=== PATIENT | male | born 1980 | race Caucasian/White ===

== ENCOUNTER 2016-11-06 05:37 | Day surgery (SDC) | payer OTHER ==
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
[2016-11-06] VITALS (21 sets, daily range): BP systolic 106–137; BP diastolic 66–83; PULSE 61–102; RESP 10–18; O2SAT 88–99
[~2016-11-06] VITALS: Ht 175.3 cm; Wt 93.8 kg
[~2016-11-06 05:37] MED LIST: DOCU250C2 PO; ESOM20CA28 PO; IBUP800T28 PO; Lactated Ringer's 1,000 ML IV ONE; METH750T3 PO; OXYC-466 PO
[2016-11-06] MEDS ORDERED: Propofol 10,000 mCg/mL 20 mL Inj ONE (05:38)
[2016-11-06] MEDS ORDERED: Neostigmine 1 mg/mL 10 mL Inj ONE (05:38)
[2016-11-06] MEDS ORDERED: Rocuronium 10 mg/mL 5 mL Inj ONE (05:38)
[2016-11-06] MEDS ORDERED: Glycopyrrolate 0.2 MG/ML 1mL Inj ONE (05:38)
[2016-11-06] MEDS ORDERED: Dexamethasone 4 mg/mL Inj ONE (05:38)
[2016-11-06] MEDS ORDERED: HYDROmorphone 2 mg/mL Inj ONE (05:38)
[2016-11-06] MEDS ORDERED: EPHEDrine/NS 5 mg/mL 5 mL Syringe ONE (05:38)
[2016-11-06] MEDS ORDERED: Succinylcholine Chloride 20 mg/mL 5 mL Inj ONE (05:38)
[2016-11-06] MEDS ORDERED: Ondansetron 2 mg/mL 2 mL Inj ONE (05:38)
[2016-11-06] MEDS ORDERED: fentaNYL-PF 50 mCg/mL 2 mL Inj ONE (05:38)
[2016-11-06] MEDS ORDERED: Bacitracin 50,000 unit Inj IRRIGATION SCH (06:00)
[2016-11-06] MEDS ORDERED: Thrombin Powder 5,000 Unit TOPICAL SCH (06:00)
[2016-11-06] MEDS ORDERED: CeFAZolin Inj 2 GM in IV Premix 1 EACH IV ONE (06:00)
[2016-11-06] MEDS ORDERED: Bupivacaine Liposome 1.3% 20 mL Inj INFILTRATE ONE (06:00)
[2016-11-06] MEDS ORDERED: Lactated Ringer's 500 ML IV PRN (08:12)
[2016-11-06] MEDS ORDERED: Lactated Ringer's 1,000 ML IV SCH (08:12)
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
[2016-11-06] MEDS ORDERED: Phenylephrine 10,000 mCg/mL Inj IVPUSH PRN (08:15)
[2016-11-06] MEDS ORDERED: Atropine 0.4 mg/mL Inj IVPUSH PRN (08:15)
[2016-11-06] MEDS ORDERED: Ondansetron 2 mg/mL 2 mL Inj IVPUSH PRN ×3 (08:15→11:25)
[2016-11-06] MEDS ORDERED: EPHEDrine Sulfate 50 mg/mL Inj IVPUSH PRN (08:15)
[2016-11-06] MEDS ORDERED: Labetalol 5 mg/mL 4 mL Inj IV PRN (08:15)
[2016-11-06] MEDS ORDERED: MetoCLOpramide 5 mg/mL 2 mL Inj IVPUSH PRN ×2 (08:15→11:25)
[2016-11-06] MEDS ORDERED: Bupivacaine-MPF 0.5% 30 mL Inj INFILTRATE ONE (08:25)
[2016-11-06] MEDS ORDERED: Bacitracin 50,000 unit Inj IRRIGATION ONE (08:25)
[2016-11-06] MEDS ORDERED: Gelatin Sponge 12-7 MM TOPICAL ONE (08:25)
--- NOTE | 2016-11-06 08:36 | DRSVH ---
PROCEDURE: X-RAY LUMBAR SPINE, 1 VIEW INDICATIONS: LUMBAR SPINE SURGERY TECHNIQUE: 1 views of the lumbar spine were acquired. COMPARISON: [facility] [place], [place], SPINE LUMB MIN 4VW, 07/10/2016, 15:03. FINDINGS: Bones: Radiopaque surgical probe projected over the posterior elements at the L4 level. Soft tissues: Overlying bowel gas pattern is normal. No suspicious soft tissue calcifications. IMPRESSION: Localizer projected over the posterior elements at the L4 level. Dr. Timmons given results at 0 35 hours 11/06/2016. Dictated by: Marcelo Grubbs [facility] Interpreted: Anthony Porter MD on 11/06/2016 at 8:34 Transcribed by: MICAH on 11/06/2016 at 8:35 Approved by: Anthony Porter M.D. on 11/06/2016 at 10:29
[2016-11-06] MEDS ORDERED: Lactated Ringer's 1,000 ML IV ONE (11:10)
[2016-11-06] MEDS ORDERED: Sodium Biphos-Phos 133 mL Enema RECTAL PRN (11:25)
[2016-11-06] MEDS ORDERED: Senna-Docusate 8.6-50 mg Tablet PO PRN (11:25)
[2016-11-06] MEDS ORDERED: Magnesium Hydroxide 10 mL Oral Concentration PO PRN (11:25)
--- NOTE | 2016-11-06 11:26 | PCM.ANEP1 ---
Post Anesthesia PACU Phase 1 Assessment Vital Signs Vital Signs Date Time Temp Pulse Resp B/P Pulse Ox O2 Delivery O2 Flow Rate FiO2 11/06/16 11:20 93 13 137/82 98 Nasal Cannula 3 11/06/16 11:15 81 11 137/77 99 Simple Mask 8 11/06/16 11:10 78 12 135/81 98 Simple Mask 8 11/06/16 11:05 82 10 134/67 96 Simple Mask 8 11/06/16 11:04 36.7 84 11 130/76 95 Nasal Cannula 3 11/06/16 06:04 36.0 61 16 125/83 99 Room Air Anesthetic Administered: GA Level of Alertness: Sleepy, easy to arouse LANE's with Equal Strength: Yes Pain: No Nausea or Vomiting: No CV Function & Hydration Stable: Yes Airway Device: Endotrachial Tube Oxygen Delivery: Nasal Cannula Lungs: Clear to Auscultation, Normal Air Movement PACU Phase 2 Assessment Complications: No Follow up Care: N/A Patient Instructions Provided: N/A Nile Magdaleno MD November 06, 2016 11:26
[2016-11-06] MEDS: fentaNYL-PF 50 mCg/mL 2 mL Inj IVPUSH PRN ×3 (11:28→11:46)
[2016-11-06] MEDS: HYDROmorphone 1 mg/mL Inj IVPUSH PRN ×4 (11:28→15:21)
--- NOTE | 2016-11-06 11:40 | PCM.DISURG ---
Surgical Discharge Instruction Date of Service November 06, 2016 Dates of Hospitalization Date of Hospital Admission Outpatient with bed status 11/06/2016 Providers Admitting Physician: Primary Care Physician: Fanny Corral MD Attending Physician: Vinnie Timmons MD Discharge Diagnosis Discharge Diagnosis Status post L4-5 partial laminectomy with left L4-5 microdiscectomy Post Operative diagnosis Status post L4-5 partial laminectomy with left L4-5 microdis Additional Instructions Discharge Instructions Lumbar Decompression Instructions What is my recovery like? Patient usually go home the same day of surgery but occasionally stay overnight and discharged the next morning. A lumbar brace is worn for comfort only. What are my restrictions? You should not lift anything heavier than five pounds. You should not perform any excessive bending from the waist or twisting movements. Can I Shower? You may shower when you go home. You must remove the outside dressing on the 7th day after surgery, or change as needed if soiled or saturated (replacing new sterile gauze & water proof dressing) otherwise leave alone. The remaining small pieces of tape (steri-strips) directly on top of the incision may get wet. The steri-strips will fall off on their own. Can I drive? No, you should not drive until specifically given permission from your Doctor in a follow up appointment. Most Patient's can drive in 2-3 weeks if they are not taking narcotic pain medications or muscle relaxers. You may ride in a car, but should avoid trips longer than two hours in duration. When can I return work / sports? Your Doctor will discuss your return to work with you on your first postoperative follow-up appointment. Most patients may return to work within 2 weeks for sedentary jobs. More physically demanding jobs may require 3-6 months of healing before such work can be considered. When should I call the doctor? You should call your Doctor or go to the Emergency Department if you develop chest pain, shortness of breath, a temperature greater than 101.5 F, severe uncontrolled pain or weakness, loss of bowel or bladder function, choking, lots or drainage, pus discharge or constipation. Instructions Regarding Comfort & Pain Medication Use: During the recovery period , even with the use of pain medication, you may experience pain at the site of surgery. You may also have the same type of pain you had before surgery. Please use your pain scale as a guide for taking your pain medication. When your pain is greater than 4 out of 10, or when your pain reaches your personal tolerable level of pain, take your pain medication as prescribed. Use your pain medication on an 'as needed' basis. This means if your pain level is within your tolerable level of pain you DO NOT need to take the medication. As you get better, you will notice you can increase the time interval between doses and decrease the number of tablets you are taking, gradually taking less and less pain medication. Taking pain medication when it is not necessary (for example when your pain is tolerable or acceptable) can result in dangerous side effects and over- sedation. Signs and symptoms of over-sedation include: drowsiness, excessive sleeping, slow or difficult breathing, slurred speech, impaired thinking, confusion, impaired motor coordination. If you have any of these symptoms stop taking the medication and immediately contact your doctor. IF SYMPTOMS ARE LIFE THREATENING CALL 911. To decrease pain and swelling, frequently apply an ice pack for 20 min intervals with at least one hour off. When to take Acetaminophen for pain? If you don't have liver problems, allergies and/or Tylenol is not in your current pain medication. Take Extra Strength Tylenol 500mg 2 tabs by mouth every 6 hours as needed for pain. DO NOT EXCEED 8 TABS PER DAY. Follow Up Plan Follow Up Plan Follow-up with physician surgeon assistant and outpatient neurosurgery clinic in 1 week for wound check Follow-up Provider (F9): Anthony Solomon PA-C Additional Information Attending Statement All documentation reviewed & orders arthritis by Dr. Vinnie Timmons M.D. Anthony Solomon PA-C November 06, 2016 11:40
--- NOTE | 2016-11-06 11:59 | OP ---
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 POSTOPERATIVE DIAGNOSIS(ES): PROCEDURE: 1. Open bilateral L4-L5 partial hemilaminectomy with lateral recess decompression bilaterally. 2. Left L4-L5 microdiskectomy. SURGEON: Vinnie Timmons MD COMMERCIAL [employer]AR SALES CONSULTANT: Anthony Solomon PA-C ANESTHESIA: General with Dr. Nile Magdaleno ESTIMATED BLOOD LOSS: 25 cc. DRAINS: None. COMPLICATIONS: None. INDICATIONS: This patient presented with bilateral L5 radiculopathy, more pronounced on the left side, and had a large central disk herniation causing bilateral lateral recess stenosis. DOCUMENTATION FOR COMMERCIAL SOLAR SALES CONSULTANT: This surgery requires a ophthalmic surgical assistant for retraction of the nerve root during procedures that require the calender machine operator to use two hands. The ophthalmic surgical assistant is required for the safety of this operation. DESCRIPTION OF PROCEDURE: This patient was taken to the operating room on November 06, 2016, placed under general anesthesia, placed prone on a Yony frame, prepped and draped sterile. The skin was infiltrated with plain Marcaine and a spinal needle was placed in the middle of his prior midline incision from his prior back surgery. The x-ray confirmed that the needle was directly over the disc space and adjacent to the L4 spinous process. The skin was then incised along the old scar and the incision was carried down sharply through the skin and subcutaneous tissue to the dorsal lumbar fascia. Hemostasis was achieved with the monopolar and Weitlaner retractors were placed. The fascia along the spinous process of L4 and L5 was incised with the monopolar. Then, the Piper elevators were used to mobilize the paraspinous musculature off of the spinous process of L4 and L5, the lamina of L4 and L5, and mobilized this tissue laterally on both sides of the L4 and L5 spinous process. A sharp towel clip was then used as a marker and it was attached to the spinous process of L4, and its position was confirmed with an intraoperative lateral L-spine x-ray. The microscope was then brought into position on the left side and the patient had a partial hemilaminectomy of L4 and L5 on the left side, thinning the lamina of L4 and L5 with a high-speed bur and undermining with the Kerrison punch. The ligamentum flavum was removed and this decompression was extended laterally undermining the ligament and the most medial aspect of the left L4-L5 facet. This decompressed the lateral recess of the L5 root. The root was then mobilized medially and the patient had a disk herniation that was adherent to the L5 root. It was possible to mobilize the nerve root off of the herniated portion of the disk and remove this herniated portion to decompress beneath the thecal sac and the left L5 root. This was an aggressive diskectomy on the left side. The disc space was entered and the degenerative material was removed with the reverse angle curette and the pituitary rongeur, and the diskectomy was extended across the midline. A large free fragment was removed during this procedure that decompressed beneath the thecal sac and beneath the left S1 root. The disc space was then irrigated with antibiotic solution. Gelfoam was left in the partial hemilaminectomy wound on the left side. Attention was then turned to the right side and the microscope was repositioned to the right side at the L4-L5 level. The patient had a right L4-L5 partial hemilaminectomy. The lamina of L4 and L5 were thinned with a high-speed bur, undermined with the Kerrison punch and the ligamentum flavum was removed. The medial aspect of the right L4-L5 facet was undermined with the Kerrison punch to extend the decompression laterally to decompress the right L5 root. The patient had a lateral recess decompression on the right side of the L5 root. The L5 root on the right side was not compressed by the disc herniation. The diskectomy on the left side had completely relieved any protrusion beneath the thecal sac and the left S1 root. The annulus appeared flat. For this reason, I elected not to disrupt the annulus on the left side. The patient had a diskectomy on the left side at L4-L5 that reached across the midline, but did not have a diskectomy on the right side at L4-L5. This patient did have a lateral recess decompression of the L5 roots bilaterally. At this point, the right L4-L5 partial hemilaminectomy defect was irrigated. Hemostasis was achieved with Gelfoam. Gelfoam was left in the partial hemilaminectomy defect on the right side. The deep retractors were removed. Hemostasis was achieved with the bipolar electrocautery. The dorsal lumbar fascia was approximated with interrupted sutures of 0 Vicryl. The subcutaneous tissues closed with 2-0 Vicryl and the skin was closed with 4-0 Vicryl using a subcuticular stitch. Steri-Strips were applied to the skin, which was dressed with Telfa, gauze, and tape.
[2016-11-06] MEDS: 0.9% Sodium Chloride 1,000 ML IV SCH ×2 (13:40→19:25)
[2016-11-06] MEDS: Acetaminophen IV 1,000 MG in IV Premix 1 EACH IV SCH ×3 (14:21→23:25)
[2016-11-06] MEDS: Dexamethasone 4 mg/mL Inj IVPUSH SCH ×2 (14:21→20:07)
[2016-11-06] MEDS: CeFAZolin Inj 2 GM in IV Premix 1 EACH IV SCH (16:41)
[2016-11-06] MEDS: hydrOXYzine Pamoate 25 mg Capsule PO PRN (17:34)
--- NOTE | 2016-11-06 19:23 | NUR ---
Post op Pt arrived on unit in bed at 1235. 3L NC, IV infusing LR in surgical tubing, dressing has small amount of blood on it. VSS, LANE, but feet are still numb and weak when flexing or extending. Pt is oriented to room, call light and positioned for comfort. Agreeable to all care. Pain 7/10 in his back. Bed in low, call light in reach, continue Q1 hour vitals and neuro checks.
--- NOTE | 2016-11-06 19:25 | NUR ---
Dizzy/pain Pt attempted to get OOB at 1430. After sitting at side of bed pt attempted to stand and got dizzy and sweaty. Laid pt back down and he started having increasing pain and cramping in his right lateral calf. Medications given and MD paged. Advised pt to stay and continue medication regimen. Pt's pain decreased with lying down, declined to put SCD's back on. Pt able to get up and walk to BR at 1530, voided 800. Pain well controlled rest of shift. Plan with MD is to d/c tomorrow as long as pt remains stable. Bed in low, call light in reach, continue to monitor.
[2016-11-06] MEDS: Senna-Docusate 8.6-50 mg Tablet PO SCH (20:07)
[2016-11-07] MEDS: CeFAZolin Inj 2 GM in IV Premix 1 EACH IV SCH (00:25)
[2016-11-07 00:30] VITALS: BP 117/76; PULSE 87; RESP 18; O2SAT 96
[2016-11-07] MEDS: hydrOXYzine Pamoate 25 mg Capsule PO PRN (00:57)
[2016-11-07] MEDS: HYDROmorphone 1 mg/mL Inj IVPUSH PRN (01:09)
[2016-11-07] MEDS: Dexamethasone 4 mg/mL Inj IVPUSH SCH ×2 (02:01→09:24)
--- NOTE | 2016-11-07 02:56 | NUR ---
Pain/activity Pt reporting pain from 5-7/10 to back and has been taking 10 mg PO Oxycodone with good relief per pt. Pt did have one episode of right calf "cramping" at 0100 similar to the episode during day shift. Pt described this pain 03/19 and was given 50 Mg of PO Vistaril and 1mg IV Dilaudid to control pain. On reassessment, pain completely gone. Pt declining to wear SCDs due to previous calf pain. Pt reporting numbness in toes decreasing and almost completely gone, strength equal bilaterally. Pt has been up SBA to Bathroom. Pt is now SL and intake has been 1200 ml orally so far. Denies nausea. On RA with CPOx mid 90s O2 sats. Tegaderm dressing, CDI to lower back with moderate drainage. Pt now resting and appears comfortable. in room overnight.
[2016-11-07] MEDS: 0.9% Sodium Chloride 1,000 ML IV SCH (03:25)
[2016-11-07 05:24] VITALS: BP 117/71; PULSE 92; RESP 18; O2SAT 98
[2016-11-07] MEDS: Acetaminophen IV 1,000 MG in IV Premix 1 EACH IV SCH (05:25)
[2016-11-07] MEDS: Senna-Docusate 8.6-50 mg Tablet PO SCH (09:24)
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
--- NOTE | 2016-11-07 12:39 | NUR ---
Discharge Pt discharged at 1121 walking to private vehicle with . Dressing changed per neuro specifications and is now CDI. Pain well controlled 11/17 and pt medicated prior to discharge. VSS, LANE, A&O x 3, still has minimal amount of numbness in toes bilaterally, but no more episodes of cramping in calf. Strong pedal pulses and equal strength in extremities. Pt has discharge instructions, care notes and understands all discharge precautions given by neuro. Prescriptions given at preop appt and already has f/u appt. IV removed intact. Has all belongings and all questions answered.
== END 2016-11-07 11:27 | disposition home or self-care (01) ==
LOC: SAS 05:37 → OSC 12:17 → SAS 11-07 11:27
PROVIDERS: ATTEND Neurological Surgery
DX: M51.16 Intervertebral disc disorders with radiculopathy, lumbar region (principal); M48.06 Spinal stenosis, lumbar region; G89.18 Other acute postprocedural pain; K21.9 Gastro-esophageal reflux disease without esophagitis; F43.10 Post-traumatic stress disorder, unspecified; F17.210 Nicotine dependence, cigarettes, uncomplicated; Z79.891 Long term (current) use of opiate analgesic
CPT/HCPCS: 63030; 63035; 72020; 94640; 96374; 96375; 96376; 97162; J0131; J0330; J0690; J1100; J1170; J1885; J2250; J2405; J2710; J3010; J7030; J7120; Q0177